=== PATIENT | female | born 1960 | race Two or more races ===

== ENCOUNTER 2017-06-20 19:46 | Inpatient (IN) | payer MEDICAID ==
[~2017-06-20] VITALS: Ht 162.6 cm; Wt 59.5 kg
[~2017-06-20 19:46] MED LIST: HYDR25TA PO; LISI-604 PO
[2017-06-20] MEDS ORDERED: ONDANSETRON HCL 4MG/2ML VIAL IV STA (21:06)
[2017-06-20] MEDS ORDERED: MORPHINE SULFATE 4 MG/ML CPJ (NOT FOR IM USE) IV STA (21:06)
[2017-06-20] MEDS ORDERED: ASPIRIN 81MG TABLET PO STA (21:06)
[2017-06-20] MEDS ORDERED: NITROGLYCERIN OINT 1GM/INCH UDPKT TD STA (21:06)
[2017-06-20] MEDS ORDERED: LISINOPRIL 20MG TABLET PO ONE (21:15)
[2017-06-20] MEDS ORDERED: HYDROCHLOROTHIAZIDE 25MG TABLET PO ONE (21:15)
[2017-06-20 21:30] LABS: BASOPHILS % 0.5 % (0.0-2.0); EOSINOPHILS % 1.8 % (0.0-5.0); HEMATOCRIT. 41.1 % (36.0-48.0); HEMOGLOBIN. 13.6 g/dL (12.0-16.0); LYMPHOCYTES % 23.6 % (20.0-50.0); MEAN CORPUSCULAR HEMOGLOBIN 27.3 pg (28.0-32.0); MEAN CORPUSCULAR VOLUME 82.4 fL (81.0-99.0); NEUTROPHILS % 63.1 % (40.0-76.0); PLATELET 250 x1000/uL (130-400); RED BLOOD CELL COUNT 4.99 mill/uL (4.2-5.4); RED CELL DISTRIBUTION WIDTH 20.5 % (11.6-14.6)
[2017-06-20 21:36] LABS: PARTIAL THROMBOPLASTIN TIME 29.3 sec (23.4-31.0); PROTHROMBIN TIME 10.5 sec (9.4-11.6)
[2017-06-20 21:41] LABS: CREATINE KINASE 203 IU/L (26-192)
[2017-06-20 21:44] LABS: CREATINE KINASE MB FRACTION 0.6 ng/mL (0.5-3.6)
[2017-06-20 21:46] LABS: CHLORIDE 97 mEq/L (98-107)
[2017-06-20] MEDS ORDERED: POTASSIUM CHLORIDE 20MEQ TABLET SR PO ONE (22:15)
[2017-06-20] MEDS ORDERED: ACETAMINOPHEN 325MG TABLET PO PRN (22:45)
[2017-06-20] MEDS ORDERED: ONDANSETRON HCL 4MG/2ML VIAL IV PRN (22:45)
[2017-06-20] MEDS ORDERED: MAGNESIUM/ALUMINUM HYDROXIDE/SIMETHICONE 30ML UDC PO PRN (22:45)
[2017-06-20] MEDS ORDERED: CLONIDINE 0.1MG TABLET PO PRN (22:45)
[2017-06-20] MEDS ORDERED: ENOXAPARIN 40MG/0.4ML SYR SUBCUT SCH (23:00)
[2017-06-20 23:30] LABS: CHLORIDE 96 mEq/L (98-107)
[2017-06-21 06:13] LABS: BASOPHILS % 0.7 % (0.0-2.0); EOSINOPHILS % 6.8 % (0.0-5.0); HEMATOCRIT. 39.9 % (36.0-48.0); HEMOGLOBIN. 13.2 g/dL (12.0-16.0); LYMPHOCYTES % 24.9 % (20.0-50.0); MEAN CORPUSCULAR HEMOGLOBIN 27.4 pg (28.0-32.0); MEAN CORPUSCULAR VOLUME 82.7 fL (81.0-99.0); MEAN PLATELET VOLUME 7.8 fl (7.4-10.4); MONOCYTES % 12.9 % (2.0-8.0); NEUTROPHILS % 54.7 % (40.0-76.0); PLATELET 227 x1000/uL (130-400); RED BLOOD CELL COUNT 4.82 mill/uL (4.2-5.4); RED CELL DISTRIBUTION WIDTH 20.5 % (11.6-14.6)
[2017-06-21 09:14] VITALS: BP 112/73
[2017-06-21] MEDS: ASPIRIN 81MG EC TABLET PO SCH (10:48)
[2017-06-21 11:11] LABS: CHLORIDE 99 mEq/L (98-107)
[2017-06-21] MEDS ORDERED: GUAIFENESIN 200MG TABLET PO PRN (11:30)
[2017-06-21 12:00] VITALS: BP 117/80
[2017-06-21] MEDS ORDERED: POTASSIUM CHLORIDE 20MEQ TABLET SR PO SCH (13:45)
[2017-06-21] MEDS: NICOTINE 14MG PATCH TD SCH (15:21)
[2017-06-21] MEDS: HYDROCODONE/ACETAMINOPHEN 5/325MG TABLET PO PRN ×2 (15:35→20:06)
[2017-06-21 16:00] VITALS: BP 120/67
[2017-06-21 18:16] LABS: *AMPHETAMINES SCREEN URINE NEGATIVE (NEGATIVE); *BARBITURATES SCREEN URINE NEGATIVE (NEGATIVE); *BENZODIAZEPINES SCREEN URINE NEGATIVE (NEGATIVE); *COCAINE SCREEN URINE NEGATIVE (NEGATIVE)
[2017-06-21 18:17] LABS: CANNABINOID URINE SCREEN NEGATIVE (NEGATIVE); METHADONE URINE SCREEN NEGATIVE (NEGATIVE); OPIATES URINE SCREEN PRESUMTIVE POSITIVE (NEGATIVE); PHENCYCLIDINE URINE SCREEN NEGATIVE (NEGATIVE)
[2017-06-21 20:00] VITALS: BP 134/87
[2017-06-21] MEDS: ENOXAPARIN 40MG/0.4ML SYR SUBCUT SCH (21:24)
[2017-06-22] VITALS (7 sets, daily range): BP systolic 111–165; BP diastolic 69–100
[2017-06-22] MEDS: HYDROCODONE/ACETAMINOPHEN 5/325MG TABLET PO PRN ×5 (01:24→22:02)
[2017-06-22 05:59] LABS: BASOPHILS % 0.4 % (0.0-2.0); EOSINOPHILS % 4.9 % (0.0-5.0); HEMATOCRIT. 38.5 % (36.0-48.0); HEMOGLOBIN. 12.8 g/dL (12.0-16.0); LYMPHOCYTES % 17.8 % (20.0-50.0); MEAN CORPUSCULAR HEMOGLOBIN 27.4 pg (28.0-32.0); MEAN CORPUSCULAR VOLUME 82.4 fL (81.0-99.0); MEAN PLATELET VOLUME 8.4 fl (7.4-10.4); MONOCYTES % 8.2 % (2.0-8.0); NEUTROPHILS % 68.7 % (40.0-76.0); PLATELET 214 x1000/uL (130-400); RED BLOOD CELL COUNT 4.67 mill/uL (4.2-5.4)
[2017-06-22 06:43] LABS: CHLORIDE 96 mEq/L (98-107)
[2017-06-22] MEDS: HYDROCHLOROTHIAZIDE 25MG TABLET PO SCH (09:30)
[2017-06-22] MEDS: ASPIRIN 81MG EC TABLET PO SCH (09:30)
[2017-06-22] MEDS: LISINOPRIL 20MG TABLET PO SCH (09:31)
[2017-06-22] MEDS: NICOTINE 14MG PATCH TD SCH (09:36)
[2017-06-22] MEDS: POTASSIUM CHLORIDE 20MEQ TABLET SR PO SCH (10:53)
[2017-06-22] MEDS: DILTIAZEM HCL 120MG CAPSULE CD 24HR PO SCH (10:54)
[2017-06-22 13:31] LABS: CLARITY URINE CLOUDY (CLEAR); COLOR URINE YELLOW (YELLOW); KETONES URINE NEGATIVE (NEGATIVE); LEUKOCYTE ESTERASE URINE 3+ (NEGATIVE); NITRITE URINE NEGATIVE (NEGATIVE); OCCULT BLOOD URINE 1+ (NEGATIVE); PROTEIN URINE NEGATIVE (NEGATIVE); SPECIFIC GRAVITY URINE 1.007 (1.005-1.030); UROBILINOGEN URINE 0.2 E.U./dL (0.2-1.0)
[2017-06-22] MEDS: ATORVASTATIN CALCIUM 10MG TABLET PO SCH (21:24)
[2017-06-22] MEDS: SULFAMETHOXAZOLE/TRIMETHOPRIM 400/80MG TAB PO SCH (21:24)
[2017-06-22] MEDS: SODIUM CHLORIDE 0.9% 1,000 ML IV SCH (21:25)
[2017-06-23] VITALS: BP 125/80
[2017-06-23 04:00] VITALS: BP 114/70
[2017-06-23] MEDS: SODIUM CHLORIDE 0.9% 1,000 ML IV SCH ×2 (06:23→16:00)
[2017-06-23 06:42] LABS: BASOPHILS % 0.3 % (0.0-2.0); EOSINOPHILS % 3.2 % (0.0-5.0); HEMATOCRIT. 38.3 % (36.0-48.0); HEMOGLOBIN. 12.6 g/dL (12.0-16.0); LYMPHOCYTES % 28.7 % (20.0-50.0); MEAN CORPUSCULAR HEMOGLOBIN 27.3 pg (28.0-32.0); MEAN CORPUSCULAR VOLUME 83.2 fL (81.0-99.0); MEAN PLATELET VOLUME 8.5 fl (7.4-10.4); MONOCYTES % 12.8 % (2.0-8.0); PLATELET 210 x1000/uL (130-400); RED BLOOD CELL COUNT 4.61 mill/uL (4.2-5.4); RED CELL DISTRIBUTION WIDTH 20.2 % (11.6-14.6)
[2017-06-23 07:31] LABS: CHLORIDE 99 mEq/L (98-107)
[2017-06-23 07:42] LABS: PHOSPHORUS 4.1 mg/dL (2.5-4.9)
[2017-06-23 08:00] VITALS: BP 134/74
[2017-06-23] MEDS: DILTIAZEM HCL 120MG CAPSULE CD 24HR PO SCH (09:50)
[2017-06-23] MEDS: ASPIRIN 81MG EC TABLET PO SCH (09:50)
[2017-06-23] MEDS: POTASSIUM CHLORIDE 20MEQ TABLET SR PO SCH (09:50)
[2017-06-23] MEDS: HYDROCODONE/ACETAMINOPHEN 5/325MG TABLET PO PRN ×3 (09:51→20:29)
[2017-06-23] MEDS: LISINOPRIL 20MG TABLET PO SCH (09:51)
[2017-06-23] MEDS: NICOTINE 14MG PATCH TD SCH (09:52)
[2017-06-23] MEDS: HYDROCHLOROTHIAZIDE 25MG TABLET PO SCH (09:52)
[2017-06-23] MEDS: SULFAMETHOXAZOLE/TRIMETHOPRIM 400/80MG TAB PO SCH ×2 (09:52→20:28)
[2017-06-23 12:00] VITALS: BP 120/66
[2017-06-23] MEDS: OMEPRAZOLE 20MG CAPSULE EXTENDED RELEASE PO SCH (16:01)
[2017-06-23 16:51] VITALS: BP 111/69
[2017-06-23 17:06] LABS: HCG SCREEN NEGATIVE
[2017-06-23 20:00] VITALS: BP 126/82
[2017-06-23] MEDS: ENOXAPARIN 40MG/0.4ML SYR SUBCUT SCH (20:28)
[2017-06-23] MEDS: ATORVASTATIN CALCIUM 10MG TABLET PO SCH (20:28)
[2017-06-23] MEDS: IPRATROPIUM/ALBUTEROL 0.5-3(2.5)MG/3ML NEB INH SCH (20:30)
[2017-06-24] VITALS: BP_SYST 100; BP_SYST 145; BP_DIAS 68; BP_DIAS 78
[2017-06-24] MEDS: IPRATROPIUM/ALBUTEROL 0.5-3(2.5)MG/3ML NEB INH SCH ×4 (01:39→20:49)
[2017-06-24 04:00] VITALS: BP 126/60
[2017-06-24 07:29] LABS: BASOPHILS % 0.6 % (0.0-2.0); EOSINOPHILS % 4.1 % (0.0-5.0); HEMATOCRIT. 37.1 % (36.0-48.0); HEMOGLOBIN. 11.9 g/dL (12.0-16.0); LYMPHOCYTES % 38.5 % (20.0-50.0); MEAN CORPUSCULAR HEMOGLOBIN 27.2 pg (28.0-32.0); MEAN CORPUSCULAR VOLUME 84.8 fL (81.0-99.0); MEAN PLATELET VOLUME 8.5 fl (7.4-10.4); MONOCYTES % 12.2 % (2.0-8.0); NEUTROPHILS % 44.6 % (40.0-76.0); PLATELET 200 x1000/uL (130-400); RED BLOOD CELL COUNT 4.38 mill/uL (4.2-5.4); RED CELL DISTRIBUTION WIDTH 20.1 % (11.6-14.6)
[2017-06-24 08:20] LABS: CHLORIDE 100 mEq/L (98-107)
[2017-06-24 08:22] VITALS: BP 115/77
[2017-06-24 08:32] LABS: PHOSPHORUS 3.4 mg/dL (2.5-4.9)
[2017-06-24] MEDS: POTASSIUM CHLORIDE 20MEQ TABLET SR PO SCH (08:33)
[2017-06-24] MEDS: SULFAMETHOXAZOLE/TRIMETHOPRIM 400/80MG TAB PO SCH ×2 (08:33→20:18)
[2017-06-24] MEDS: ASPIRIN 81MG EC TABLET PO SCH (08:34)
[2017-06-24] MEDS: LISINOPRIL 20MG TABLET PO SCH (08:34)
[2017-06-24] MEDS: DILTIAZEM HCL 120MG CAPSULE CD 24HR PO SCH (08:34)
[2017-06-24] MEDS: HYDROCHLOROTHIAZIDE 25MG TABLET PO SCH (08:35)
[2017-06-24] MEDS: OMEPRAZOLE 20MG CAPSULE EXTENDED RELEASE PO SCH (08:35)
[2017-06-24] MEDS: NICOTINE 14MG PATCH TD SCH (08:36)
[2017-06-24] MEDS: HYDROCODONE/ACETAMINOPHEN 5/325MG TABLET PO PRN ×3 (08:44→20:20)
[2017-06-24 11:53] VITALS: BP 134/85
[2017-06-24 16:20] VITALS: BP 136/76
[2017-06-24 20:00] VITALS: BP 136/85
[2017-06-24] MEDS: ATORVASTATIN CALCIUM 10MG TABLET PO SCH (20:18)
[2017-06-24] MEDS: ENOXAPARIN 40MG/0.4ML SYR SUBCUT SCH (20:18)
[2017-06-25] VITALS: BP 123/71
[2017-06-25] MEDS: IPRATROPIUM/ALBUTEROL 0.5-3(2.5)MG/3ML NEB INH SCH ×2 (00:56→21:40)
[2017-06-25 04:00] VITALS: BP 127/58
[2017-06-25] MEDS: OMEPRAZOLE 20MG CAPSULE EXTENDED RELEASE PO SCH (05:43)
[2017-06-25 07:23] LABS: BASOPHILS % 0.6 % (0.0-2.0); EOSINOPHILS % 3.8 % (0.0-5.0); HEMATOCRIT. 35.5 % (36.0-48.0); HEMOGLOBIN. 11.8 g/dL (12.0-16.0); LYMPHOCYTES % 35.2 % (20.0-50.0); MEAN CORPUSCULAR HEMOGLOBIN 28.1 pg (28.0-32.0); MEAN CORPUSCULAR VOLUME 84.3 fL (81.0-99.0); MEAN PLATELET VOLUME 8.4 fl (7.4-10.4); MONOCYTES % 13.2 % (2.0-8.0); NEUTROPHILS % 47.2 % (40.0-76.0); PLATELET 214 x1000/uL (130-400); RED BLOOD CELL COUNT 4.21 mill/uL (4.2-5.4); RED CELL DISTRIBUTION WIDTH 19.5 % (11.6-14.6)
[2017-06-25 07:47] LABS: CHLORIDE 101 mEq/L (98-107)
[2017-06-25 08:00] VITALS: BP 139/83
[2017-06-25] MEDS: POTASSIUM CHLORIDE 20MEQ TABLET SR PO SCH (09:26)
[2017-06-25] MEDS: HYDROCHLOROTHIAZIDE 25MG TABLET PO SCH (09:26)
[2017-06-25] MEDS: DILTIAZEM HCL 120MG CAPSULE CD 24HR PO SCH (09:26)
[2017-06-25] MEDS: ASPIRIN 81MG EC TABLET PO SCH (09:26)
[2017-06-25] MEDS: LISINOPRIL 20MG TABLET PO SCH (09:26)
[2017-06-25] MEDS: SULFAMETHOXAZOLE/TRIMETHOPRIM 400/80MG TAB PO SCH ×2 (09:26→20:18)
[2017-06-25] MEDS: NICOTINE 14MG PATCH TD SCH (09:27)
[2017-06-25] MEDS: HYDROCODONE/ACETAMINOPHEN 5/325MG TABLET PO PRN ×3 (09:28→20:18)
[2017-06-25 11:59] VITALS: BP 110/81
[2017-06-25 16:00] VITALS: BP 152/90
[2017-06-25 20:00] VITALS: BP 115/82
[2017-06-25] MEDS: ENOXAPARIN 40MG/0.4ML SYR SUBCUT SCH (20:17)
[2017-06-25] MEDS: ATORVASTATIN CALCIUM 10MG TABLET PO SCH (20:18)
[2017-06-26] VITALS: BP 118/79
[2017-06-26] MEDS ORDERED: HYDROCODONE/ACETAMINOPHEN 5/325MG TABLET PO PRN (01:00)
[2017-06-26] MEDS: IPRATROPIUM/ALBUTEROL 0.5-3(2.5)MG/3ML NEB INH SCH ×2 (01:18→08:18)
[2017-06-26 04:00] VITALS: BP 140/80
[2017-06-26] MEDS: OMEPRAZOLE 20MG CAPSULE EXTENDED RELEASE PO SCH (06:41)
[2017-06-26 08:00] VITALS: BP 133/76
[2017-06-26] MEDS: LISINOPRIL 20MG TABLET PO SCH (08:43)
[2017-06-26] MEDS: POTASSIUM CHLORIDE 20MEQ TABLET SR PO SCH (08:43)
[2017-06-26] MEDS: SULFAMETHOXAZOLE/TRIMETHOPRIM 400/80MG TAB PO SCH (08:43)
[2017-06-26] MEDS: ASPIRIN 81MG EC TABLET PO SCH (08:43)
[2017-06-26] MEDS: NICOTINE 14MG PATCH TD SCH (08:43)
[2017-06-26] MEDS: HYDROCHLOROTHIAZIDE 25MG TABLET PO SCH (08:44)
[2017-06-26] MEDS: DILTIAZEM HCL 120MG CAPSULE CD 24HR PO SCH (08:44)
[2017-06-26] MEDS ORDERED: DILT120C88 PO (09:22)
[2017-06-26] MEDS ORDERED: ATOR10TA PO (09:24)
[2017-06-26] MEDS ORDERED: OMEP20CA10 PO (09:24)
[2017-06-26] MEDS ORDERED: SULF-292 PO (09:24)
[2017-06-26] MEDS ORDERED: POTA20TA82 PO (09:24)
[2017-06-26 09:26] VITALS: BP 133/81
== END 2017-06-26 11:00 | disposition home or self-care (01) ==
LOC: ER 19:46 → EDBEDREQTM 22:16 → EDBEDREQ 22:16 → ENRESERV 06-21 07:00 → 8WST 06-21 09:20
PROVIDERS: ADMIT Internal Medicine; ATTEND Internal Medicine
DX: K80.70 Calculus of gallbladder and bile duct without cholecystitis without obstruction (principal); E87.1 Hypo-osmolality and hyponatremia; E87.8 Other disorders of electrolyte and fluid balance, not elsewhere classified; I27.20 Pulmonary hypertension, unspecified; M94.0 Chondrocostal junction syndrome [Tietze]; I10 Essential (primary) hypertension; E87.6 Hypokalemia; E78.5 Hyperlipidemia, unspecified; J44.9 Chronic obstructive pulmonary disease, unspecified; N39.0 Urinary tract infection, site not specified; M48.061 Spinal stenosis, lumbar region without neurogenic claudication; K56.41 Fecal impaction; F17.210 Nicotine dependence, cigarettes, uncomplicated; Z90.49 Acquired absence of other specified parts of digestive tract; Z91.14 Patient's other noncompliance with medication regimen; Z79.899 Other long term (current) drug therapy
CPT/HCPCS: 36415; 71045; 74176; 76705; 76770; 80048; 80053; 80061; 80076; 80305; 81003; 82550; 82553; 83690; 83735; 83880; 84100; 84443; 84484; 84703; 85025; 85610; 85730; 87077; 87086; 87186; 93005; 93306; 93970; 94640; 96374; 96375; 99291; J1650; J2270; J2405; J7030; J7620